=== PATIENT | male | born 1940 | race Caucasian/White ===

== ENCOUNTER → 2023-05-20 07:52 | Outpatient (REF) | payer OTHER, SELFPAY | LOC: RAD 07:52 | PROVIDERS: ATTENDING PHYSICIAN Surgery Vascular Surgery; FAMILY PHYSICIAN Internal Medicine; REFERRING PHYSICIAN Internal Medicine Cardiovascular Disease | DX: I71.43 Infrarenal abdominal aortic aneurysm, without rupture (principal); N18.9 Chronic kidney disease, unspecified; I71.40 Abdominal aortic aneurysm, without rupture, unspecified | CPT/HCPCS: 74176 ==

== ENCOUNTER → 2023-06-04 10:17 | Outpatient (REF) | payer OTHER, SELFPAY ==
[2023-06-04 12:06] LABS: Blood Urea Nitrogen 23 mg/dl (9-20); Carbon Dioxide 23 mmol/L (22-30); Chloride 103 mmol/L (98-107); Glucose 119 mg/dl (70-99); Potassium 4.9 mmol/L (3.5-5.1); Sodium 136 mmol/L (135-145); eGFR 54.85
== END ==
LOC: REG 10:17
PROVIDERS: ATTENDING PHYSICIAN Surgery Vascular Surgery; FAMILY PHYSICIAN Internal Medicine
DX: I71.43 Infrarenal abdominal aortic aneurysm, without rupture (principal)
CPT/HCPCS: 36415; 80048

== ENCOUNTER → 2023-06-15 09:16 | Outpatient (REF) | payer OTHER, SELFPAY | LOC: RAD 09:16 | PROVIDERS: ATTENDING PHYSICIAN Surgery Vascular Surgery; FAMILY PHYSICIAN Internal Medicine | DX: I71.43 Infrarenal abdominal aortic aneurysm, without rupture (principal) | CPT/HCPCS: 74174; Q9967 ==

== ENCOUNTER 2023-07-24 09:19 | Inpatient (IN) | payer OTHER, SELFPAY ==
[2023-07-16 09:22] VITALS: BMI 32.6
[2023-07-16 10:09] LABS: % Basophils 0.6 % (0-2); % Eosinophils 3.1 % (0-6); % Immature Granulocytes 0.4 % (0-0.5); % Lymphocytes 26.4 % (20.5-51.1); % Monocytes 6.6 % (1.7-9.3); % Neutrophils 62.9 % (42.2-75.2); Absolute Eosinophils 0.2 10^3/uL (0-0.7); Absolute Lymphocytes 1.4 10^3/uL (1.2-3.4); Absolute Monocytes 0.3 10^3/uL (0.1-0.6); Absolute Neutrophils 3.2 10^3/uL (1.4-6.5); Hematocrit 42.8 % (39.0-52.0); Mean Corp Hgb Conc. 32.7 g/dL (33.0-37.0); Mean Corpuscular Hgb 29.3 pg (27.0-31.0); Mean Corpuscular Volume 89.5 fL (80.0-94.0); Mean Platelet Volume 10.7 fL (7.4-10.4); Nucleated Red Blood Cells % 0 % (-); Platelet Count 168 10^3/uL (130-400); Red Blood Cell Count 4.78 10^6/uL (4.70-6.10); Red Cell Dist. Width 13.3 % (11.5-14.5); White Blood Cell Count 5.2 10^3/uL (4.8-10.8)
[2023-07-16 10:12] LABS: PT 18.2 Sec (11.4-14.6)
[2023-07-16 10:13] LABS: APTT 33.7 Sec (23.4-35.0)
[2023-07-16 10:15] LABS: Blood Urea Nitrogen 27 mg/dl (9-20); Calcium 9.8 mg/dl (8.4-10.2); Carbon Dioxide 26 mmol/L (22-30); Chloride 105 mmol/L (98-107); Estimated Creatinine Clearance 41 ml/min; Glucose 128 mg/dl (70-99); Sodium 134 mmol/L (135-145); eGFR 42.75
--- NOTE | 2023-07-16 12:35 | PTCARENOTE ---
INR 1.50 collected on 07/16/23; Cate at 's office was notified.
[2023-07-24] VITALS (17 sets, daily range): BP systolic 112–188; BP diastolic 56–99; BMI 32.5
--- NOTE | 2023-07-24 10:11 | W.SUR.PREOP ---
Pre-Operative Surgical Note
-
I have examined this patient prior to the performance of the scheduled procedure.
The patient's condition is unchanged from the time of the current History and
Physical and the patient is able to undergo the scheduled procedure.
[2023-07-24] MEDS: BACTROBAN NASAL 1 GRAM NASAL (11:45)
[2023-07-24] MEDS: PERIDEX 0.12% ORAL RINSE 15 ML PO (11:46)
[2023-07-24 13:52] LABS: ACT-LR - POC 316 Seconds (116-155)
[2023-07-24 14:38] LABS: ACT-LR - POC 281 Seconds (116-155)
--- NOTE | 2023-07-24 15:04 | W.IMMPOSTOP ---
Surgical Immed Post Op Note
-
Primary Surgeon: Dr. Jatin Jones III, MD
Assisting Surgeon: Dr. Kemar Velazco MD, PhD (PGY-1)
Pre-op Diagnosis: Infrarenal abdominal aortic aneurysm
Post-op Diagnosis: Infrarenal abdominal aortic aneurysm
Procedure Performed: EVAR of infrarenal AAA
Anesthesia Type: General
Specimen / Cultures: None
Estimated Blood Loss: 50cc
Complications: None
Operative Findings: Vascular access was obtained in common femoral arteries bilaterally. Preclose devices x2 were placed in each femoral access site. Following sheath placement, a [place] stent was deployed across the aneurysm. Contrast injected post
deployment demonstrated good flow in the R renal artery. The stent was balloon dilated. Post dilation contrast confirmed good patency and positioning of the stent. Sheaths were removed and vascular access sites were closed with the preclose devices.
Hemostasis confirmed and skin glue was placed at both sites.
--- NOTE | 2023-07-24 15:35 | OR.RPT ---
Operative Report
Operative Report
Date of Operation: 07/24/2023
Pre Op Diagnosis: Abdominal aortic aneurysm
Post Op Diagnosis: Abdominal aortic aneurysm
Procedure:
1.) Percutaneous endovascular repair of infrarenal abdominal aortic aneurysm:
GORE Excluder Conformable 23 mm x 14.5 mm x 12 cm (main body right)
GORE 14.5 mm x 12 cm (LEFT iliac limb)
GORE 18 mm x 12 cm (RIGHT iliac limb)
2.) Introduce wire/catheter abdominal aorta from femoral arterial access (bilateral)
3.) Ultrasound-guided percutaneous femoral access (bilateral)
4.) ProGlide femoral artery access closure bilaterally
Surgeon: Jatin Jones III, MD
Animal Care Attendant: Kemar Velazco MD PhD, PGY1
Anesthesia: General
Complications: None
History and Indications for Procedure: 83-year-old male with single kidney on the right and large abdominal aortic aneurysm.
Procedure in Detail: Dm Champagne was correctly identified and placed supine on the operating table. After adequate induction of anesthesia the abdomen, pelvis and bilateral groins were positioned, prepped and draped in the usual sterile fashion.
Preoperative antibiotics were administered. A timeout procedure was performed with the nursing and anesthesia staff confirming the patients identity as well as the nature and laterality of the procedure.
Under ultrasound guidance, bilateral femoral artery sheath access was obtained. The arteries were patent. Ultrasound images of the femoral arteries were saved to the medical record. A pre-close technique was performed bilaterally with 2 offset
Proglide closure devices. The sutures were secured and tucked under surgical towels for use at the end of the case. The patient was systemically heparinized.
From the right femoral access a KMP catheter and Bentson wire were advanced to the proximal descending thoracic aorta. The wire was exchanged out through the catheter for a Lunderquist wire. From the left femoral access a KMP A catheter and Bentson
wire were advanced to the proximal descending thoracic aorta. The wire was exchanged out through the KMP catheter for a Lunderquist wire. Over the stiff wire on the right a 16 Fr Dry Seal sheath was placed. Over the stiff wire on the left a 12 Fr
Dry Seal sheath was placed. Both sheath tips were advanced into the aneurysm sac. A marker pigtail catheter was then placed for angiographic purposes through the left femoral sheath.
The aortic main body device was then properly oriented outside the body under fluoro. The [place] Excluder Conformable 23 mm x 14.5 mm x 12 cm aortic main body device was then loaded onto the right femoral Lunderquist wire and advanced into the
abdominal aorta. Appropriate cranio-caudal C-arm positioning was performed based on preop imaging. With the device in the approximate position an aortogram was performed and identified the origins of the right renal artery (prior left nephrectomy).
The delivery system was then positioned such that the radiopaque markers were just distal to the lowest renal artery. The ipsilateral sheath was pulled back to below the distal limb marker. The pigtail catheter was pulled back into the aneurysm. The
first stage of main body deployment to the contralateral gate was then performed.
The C-arm was re-oriented to view the contralateral gate. Using the partially formed pigtail catheter within the 12 [place] sheath tip and a glide wire the contralateral gate was cannulated. The wire and catheter were advanced into the main body. The
pigtail was spun to confirm proper positioning in the main body lumen. Another aortogram was performed at this point to confirm proper positioning of the main body below the renal arteries. The aortic main body had landed upon initial deployment
slightly lower than I had desired below the right renal. Therefore I engaged the re-constraining mechanism of the [place] Excluder main body. Under roadmap guidance and magnification view I then carefully advanced the constrained aortic main body and
positioned it precisely below the right renal artery. The device was redeployed in the desired location.
The pigtail catheter was then advanced into the proximal descending thoracic aorta and then the wire exchanged out for a Lunderquist. The left femoral sheath was pulled back and a retrograde arteriogram was then performed with the marker pigtail
catheter on the stiff wire. The iliac bifurcation was visualized and lengths were measured for the contralateral iliac limb. A 14.5 mm x 12 cm iliac limb was inserted on the left under fluoro. Proper overlap was obtained. The limb was deployed under
roadmap guidance without difficulty.
The remainder of the main body and ipsilateral limb deployment was performed. The delivery system was carefully removed over the wire under fluoro. A marker pigtail catheter was placed on the stiff wire on the right. The 16 [place] sheath was pulled
back and a retrograde arteriogram was then performed with the marker pigtail catheter on the stiff wire. The right iliac bifurcation was visualized and lengths were measured for the ipsilateral iliac limb extension. A 18 mm x 12 cm iliac limb was
inserted on the right under fluoro. Proper overlap was obtained. The limb was deployed under roadmap guidance without difficulty.
An MOB balloon was then inserted from each femoral access, one side at a time. The proximal main body seal zone, all areas of overlap, both iliac limbs and both distal iliac seal zones were profiled with the balloon. The balloon was re-advanced into
the main body and the Lunderquist wire removed. A pigtail catheter was inserted and advanced to the proximal main body.
A completion aortogram demonstrated an excellent technical result. The aneurysm was excluded. No endoleaks were seen. The main right renal artery was patent.
The Proglide sutures were secured bilaterally after removing the sheaths and wires. Protamine was administered. Additional pressure was applied to the puncture sites bilaterally for 5 minutes. Hemostasis was achieved bilaterally.
Skin glue was applied bilaterally.
The patient tolerated the procedure well and was taken to the PACU in stable condition.
Attestation: I was present and responsible for the entire procedure
Jatin Jones III, MD
[facility] Vascular Surgery
[phone] (ecru)
[2023-07-24 15:45] LABS: Hematocrit 40.2 % (39.0-52.0); Hemoglobin 13.2 g/dL (13.0-18.0); Mean Corp Hgb Conc. 32.8 g/dL (33.0-37.0); Mean Corpuscular Hgb 29.5 pg (27.0-31.0); Mean Corpuscular Volume 89.9 fL (80.0-94.0); Mean Platelet Volume 10.4 fL (7.4-10.4); Platelet Count 155 10^3/uL (130-400); Red Blood Cell Count 4.47 10^6/uL (4.70-6.10); Red Cell Dist. Width 13.4 % (11.5-14.5); White Blood Cell Count 6.7 10^3/uL (4.8-10.8)
[2023-07-24] MEDS: NSS 1000 IV ×2 (15:52→23:47)
[2023-07-24 15:56] LABS: Blood Urea Nitrogen 21 mg/dl (9-20); Calcium 8.7 mg/dl (8.4-10.2); Carbon Dioxide 24 mmol/L (22-30); Chloride 106 mmol/L (98-107); Estimated Creatinine Clearance 55 ml/min; Glucose 120 mg/dl (70-99); Potassium 4.7 mmol/L (3.5-5.1); Sodium 133 mmol/L (135-145); eGFR > 60.00
[2023-07-24 16:04] LABS: APTT 32.7 Sec (23.4-35.0); INR 1.17; PT 14.7 Sec (11.4-14.6)
--- NOTE | 2023-07-24 16:33 | TRANSFER ---
Patient transferred to ICU following stable phase 1 recovery in PACU, Report given to Maria Victoria, Family given update. Sherman Paz RN BSN.
[2023-07-24] MEDS: CARDENE 200 IV (16:36)
--- NOTE | 2023-07-24 17:07 | CON.INTV ---
Consultation
Consultation Request
Date/Time Consultation Requested: 07/24/2023 - 1627
Date/Time Consultation Performed: 07/24/2023 - 1704
Requesting Provider: Dr. Jones
Performing Provider: Dr. Allen
Reason for Consultation: EVAR
Medical History
-
Chief Complaint: Elective EVAR
History of Present Illness:
83-year-old male with a past medical history of AAA, tricuspid regurgitation, hypertension, A-fib on Xarelto, CKD III, and penile cancer who presents with elective EVAR of known AAA without rupture. Patient known to vascular surgery with last
office visit on 06/18/[address] Jones. Patient has a known infrarenal abdominal aortic aneurysm without rupture. It measures 5.[address] angiogram images were reviewed at his last office visit and he was recommended for surgical
endovascular aortic aneurysm repair. 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 This was planned to be sacrificed in the process of endovascular repair.
Patient agreed and consented for surgical intervention, and today he underwent percutaneous endovascular repair of infrarenal abdominal aortic aneurysm. There were no complications, and patient was transferred to the ICU postoperatively for further
care. Critical care services now consulted for additional management/recommendations.
When I saw the patient he was laying in bed in no acute distress, on Cardene at 2.5mg/hr, with BP via left radial A-line of 114/60 (BP via NIBP: 116/56), HR: 76, and SpO2 95% on 4 L/min nasal cannula (not on home O2). Patient has no complaints �
denies chest pain, headache, abdominal pain, nausea, diarrhea, fevers or chills.
PMHx: Ureter cancer, penile cancer, A-fib, CKD 3, hypertension, history of TR, AAA
PSHx: Left-sided nephrectomy, pacemaker insertion
Past Medical History
Past Medical History: Other (Above as per HPI)
Past Surgical History: Other (Above as per HPI)
Social History
Tobacco: Former Smoker (Quit smoking 5 years ago - prior to that smoked 0.5 PPD X 50 years)
Alcohol: None
Drug: None
Family History
Family History: CAD (Father: History of heart attack) and Other (Father: Cerebral aneurysm; Mother: Dementia)
Allergies / Home Medications
Allergies
Allergy/AdvReac Type Severity Reaction Status Date / Time
sulfamethoxazole Allergy Severe Rash Verified 07/24/23 10:05
[From Bactrim]
trimethoprim [From Bactrim] Allergy Rash Verified 07/24/23 10:05
Home Medications
�Medication �Instructions �Recorded �Confirmed �Last Taken �Type
levocetirizine 5 mg tablet (Xyzal) 5 mg PO QPM 12/08/22 07/24/23 07/23/23 16:00 History
lisinopril 10 mg tablet 10 mg PO DAILY 12/08/22 07/24/23 07/23/23 07:00 History
pravastatin 40 mg tablet 40 mg PO QPM 12/08/22 07/24/23 07/23/23 07:00 History
rivaroxaban 15 mg tablet (Xarelto) 15 mg PO QPM 12/08/22 07/24/23 07/21/23 16:00 History
tamsulosin 0.4 mg capsule 0.4 mg PO BID 12/08/22 07/24/23 07/23/23 16:00 History
verapamil 80 mg tablet 80 mg PO BID 12/08/22 07/24/23 07/23/23 16:00 History
aspirin 81 mg chewable tablet 81 mg PO DAILY #90 tabs 07/24/23 Unknown Rx
(Children's Aspirin)
Review of Systems
-
History Source: Patient
All other systems: Negative unless noted (12 point ROS performed and is negative unless mentioned above.)
Vitals / Labs / Diagnostic Testing
Vital Signs
Temp Pulse Resp BP Pulse Ox
97.2 F 72 16 160/87 99
07/24/23 16:45 07/24/23 16:31 07/24/23 16:31 07/24/23 16:31 07/24/23 16:45
Lab Data
07/24/23 15:30
07/24/23 15:29
Laboratory Results
07/24/23
15:29
PT 14.7 H
INR 1.17
APTT 32.7
Diagnostic Testing:
Physical Exam
-
HEENT: Normocephalic and Anicteric
Cardiovascular: S1/S2 and Peripheral Edema (negative)
Respiratory: Clear, Wheeze (negative), Rales (negative), Rhonchi (negative) and Non-Labored Respirations
GI: Soft, Non Tender, Normal Bowel Sounds and Other (Abdominal obesity)
Neurology: AO x 3
Skin: Warm and Dry
General: Comfortable, Chills (negative) and Sweats (negative)
Assessment
-
Assessment: 83-year-old male with a past medical history of AAA, tricuspid regurgitation, hypertension, A-fib on Xarelto, CKD III, and penile cancer who presents with elective EVAR of known AAA without rupture. Patient known to vascular surgery
with last office visit on 06/18/[address] Jones. Patient has a known infrarenal abdominal aortic aneurysm without rupture. It measures 5.[address] angiogram images were reviewed at his last office visit and he was recommended for surgical
endovascular aortic aneurysm repair. 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 This was planned to be sacrificed in the process of endovascular repair.
Patient agreed and consented for surgical intervention, and today he underwent percutaneous endovascular repair of infrarenal abdominal aortic aneurysm. There were no complications, and patient was transferred to the ICU postoperatively for further
care. Critical care services now consulted for additional management/recommendations.
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
Impression:
#Abdominal aortic aneurysm s/p percutaneous endovascular aneurysm repair (POD#0)
#Hyponatremia
#Hx of CKDIII
#A-fib on Xarelto
#Obesity
#Former tobacco use disorder with 25-zevw-ypda history, quit in 2019
Plan:
Postoperative surgical intensive care unit monitoring
Supplemental oxygen as needed
Incentive spirometry
Aspiration precautions
Maintain SpO2 >90-94%
Maintain MAP>65
Wean down on cardene gtt as tolerated
Neuro and vascular checks per protocol
Replete electrolytes with K>4, Mg>2
Goal BG 140-180
Vascular surgery following-correspondence and operative notes reviewed
DVT prophylaxis: Xarelto
Early nutrition
Early mobilization
Given his tobacco smoking history, he qualifies for lung cancer screening via annual LDCT chest. He does have a known 2 mm nodule in the RLL. We can discuss this in the office.
Critical care statement: A total of 44 minutes of critical care time was provided for this patient today. This includes management of unstable vital signs, evaluation of the patient at bedside, reviewing the patient's pertinent medical records
including radiographs, microbiology, laboratory evaluations, and discussion with primary team, consultants, pharmacy, nutrition, physical therapy, case management, charge nurse, critical care nursing, and respiratory therapy.
Data:
CXR 07-24-2023: No acute disease of the chest
[2023-07-24] MEDS: LOW STRENGTH ASPIRIN 81 MG PO (17:13)
[2023-07-24] MEDS: ZYRTEC 10 MG PO (17:13)
[2023-07-24] MEDS: PRAVACHOL 40 MG PO (17:13)
[2023-07-24] MEDS: HEPARIN 5000 UNITS SC (17:13)
[2023-07-24 17:28] LABS: Magnesium 2.1 mg/dl (1.6-2.3)
--- NOTE | 2023-07-24 17:49 | PTCARENOTE ---
patient received from PACU, assessments per work list. patient denies pain, oriented, drowsy. asking questions about discharge medications and diet. instructed on plan of care. left radial arterial line with cuff correlation. afib with paced beats.
cardene initiated to keep MAP within ordered parameters. lungs clear. bilateral groin sites intact without signs bleeding or hematoma. palpable distal pulses. fox draining yellow urine. cxr, ekg completed. patient instructed on head of bed
limitations. flat for 2 hours. family at bedside. tolerating clear liquids. call oleary in reach
--- NOTE | 2023-07-24 20:00 | PTCARENOTE ---
patient received in bed drowsy but arousable. Oriented x3, [place] bilaterally. Offers no complaints. Afib with PVCs and occasional Vpacing,. Cardene gtt infusing at 2.5 mg/hr. No edema noted. palpable distal pulses. Lungs diminished bilaterally,
pulse ox 97% on 4L. Abdomen obese with hypoactive bowel sounds. Thermister fox draining yellow urine. Bilaterall groin sites approximated and open to air. #20 g in left hand with IVF infusing as ordered. #18 g in right hand flushed and patent.
Left radial Mitali transduced and zeroed. Plan of care discussed, call oleary within reach
[2023-07-24] MEDS: ISOPTIN 80 MG PO (20:33)
[2023-07-24] MEDS: FLOMAX 0.400000000000000022 MG PO (20:33)
[2023-07-25] MEDS: HEPARIN 5000 UNITS SC ×2 (00:13→07:48)
--- NOTE | 2023-07-25 00:49 | PTCARENOTE ---
Patient reassessed. no changes in neuro assessment, cardene gtt off, will monitor, oxygen decreased to 2L. Distal pulses remain palpable
[2023-07-25 04:35] LABS: Hematocrit 36.9 % (39.0-52.0); Hemoglobin 12.8 g/dL (13.0-18.0); Mean Corp Hgb Conc. 34.7 g/dL (33.0-37.0); Mean Corpuscular Hgb 30.2 pg (27.0-31.0); Mean Platelet Volume 10.3 fL (7.4-10.4); Platelet Count 152 10^3/uL (130-400); Red Blood Cell Count 4.24 10^6/uL (4.70-6.10); Red Cell Dist. Width 13.5 % (11.5-14.5); White Blood Cell Count 8.1 10^3/uL (4.8-10.8)
[2023-07-25 04:51] LABS: APTT 28.3 Sec (23.4-35.0); INR 1.12; PT 14.2 Sec (11.4-14.6)
--- NOTE | 2023-07-25 05:00 | PTCARENOTE ---
Cardene gtt restarted for MAP >90
[2023-07-25 05:29] LABS: Blood Urea Nitrogen 22 mg/dl (9-20); Calcium 8.7 mg/dl (8.4-10.2); Carbon Dioxide 20 mmol/L (22-30); Chloride 108 mmol/L (98-107); Estimated Creatinine Clearance 55 ml/min; Glucose 157 mg/dl (70-99); Sodium 133 mmol/L (135-145); eGFR > 60.00
[2023-07-25 05:31] VITALS: BP 135/81
[2023-07-25 06:00] VITALS: BP 139/75; BMI 33.0
--- NOTE | 2023-07-25 06:36 | W.PN.VS ---
Addendum entered and electronically signed by Jatin Jones III, MD 07/25/23 07:59:
This patient was seen and examined with ABILIO Taylor. I agree with the history and physical exam as well as the assessment and plan. I have the following additions:
Looks great this morning
No complaints
Abdomen soft
Palpable pedal pulses
Urine output has been good
Creatinine at baseline
Planning for discharge later today
Signed:
Jatin Jones III, MD
[facility] Vascular Surgery
[phone] (cell)
Original Note:
Today's Communication / Plan
-
Patient seen and examined at bedside with Dr. Jatin Jones III, below plan reviewed with attending.
Assessment/Plan
-
Assessment: 83-year-old male POD #1 EVAR for treatment of AAA
Plan:
Wean off Cardene infusion as tolerated, discontinue arterial line once Cardene is stopped
OOB to chair with progression to ambulation as tolerated
Continue antiplatelet aspirin 81 mg p.o. daily
Discontinue IV fluid
Discontinue Jones catheter
Continue p.o. intake as tolerated
Possible discharge later today pending toleration of ambulation, post Jones removal urinary void, hypertension management without Cardene infusion, continued toleration of p.o. diet
Subjective Data
-
Date of Service: July 25, 2023
Patient seen at bedside, offers no complaints. Denies nausea, vomiting, chills, fever, ABD pain, and bilateral groin pain.
Objective Data
-
Vital Signs
Temp Pulse Resp BP Pulse Ox
97.0 F 79 22 139/75 94
07/25/23 04:00 07/25/23 06:15 07/25/23 06:15 07/25/23 06:00 07/25/23 06:15
Intake and Output
07/23/23 07/24/23 07/25/23
06:59 06:59 06:59
Intake Total 2579.0 / 2579.0
Output Total 1110 / 1110
Balance 1469.0 / 1469.0
Intake:
Oral fluids 595 / 595
IV fluids (Total) 1984.0 / 1984.0
Nss 1,000 ml @ 75 mls/hr IV . 1813
[id number] [facility] Rx#:[id number]
cardene 120.0 / 120.0
norm 50 / 50
Output:
Urine, Jones [id number]
Lab Results
07/25/23 04:27
07/25/23 04:27
Calcium 8.7 mg/dl (8.4-10.2) 07/25/23 04:27
Magnesium 2.1 mg/dl (1.6-2.3) 07/24/23 15:29
Physical Exam
-
AAOx3, no apparent distress
No tachycardia
No dyspnea on room air
ABD soft, nontender, nondistended
Bilateral groin puncture sites CDI, no evidence of hematoma, all surrounding compartments soft
Jones draining clear yellow urine
Bilateral DP pulse +2 palpable
--- NOTE | 2023-07-25 07:44 | W.DS.TRANS ---
DC Summary - Docket Specialist
-
Discharge Instructions:
Sleep Apnea Risk High
Discharge Diagnosis/Procedures EVAR
Diet No restrictions
Activity No strenuous activity
Driving Restrictions No driving for 1 week
Bathing Restrictions OK to Shower
Others Tests BMP lab draw in 1 week - arrive to Lobby, check
in at desk, no appt needed script provided
Instructions:
Stand-Alone Forms: DC Instr - Vascular OR
Changes to Home Medications: Yes
Discharge Medications:
DC Medications w/original date entered in [facility]
levocetirizine 5 mg tablet (Xyzal) 5 mg PO QPM 12/08/22
lisinopril 10 mg tablet 10 mg PO DAILY 12/08/22
pravastatin 40 mg tablet 40 mg PO QPM 12/08/22
rivaroxaban 15 mg tablet (Xarelto) 15 mg PO QPM 12/08/22
tamsulosin 0.4 mg capsule 0.4 mg PO BID 12/08/22
verapamil 80 mg tablet 80 mg PO BID 12/08/22
aspirin 81 mg chewable tablet (Children's Aspirin) 81 mg PO DAILY #90 tabs 07/24/23
Home Medication Changes
Added: aspirin 81 mg chewable tablet (Children's Aspirin) 81 mg PO DAILY #90 tabs 07/24/23
Pending Results: No
[2023-07-25] MEDS: ZESTRIL 10 MG PO (07:47)
[2023-07-25] MEDS: FLOMAX 0.400000000000000022 MG PO (07:47)
[2023-07-25] MEDS: ISOPTIN 80 MG PO (07:47)
[2023-07-25] MEDS: NSS IV (07:48)
[2023-07-25] MEDS: LOW STRENGTH ASPIRIN 81 MG PO (07:48)
--- NOTE | 2023-07-25 08:00 | W.PN.INTV ---
Today's Communication / Plan
Recommendations
Up OOB as tolerated
Resume home PO medications including antihypertensives
Outpatient follow-up for his significant tobacco smoking history and RLL pulmonary nodule
Patient being prepared for discharge home per vascular surgery. Electrical Supervisor/Pulmonary service will now sign off. Please reconsult if there are any additional questions/concerns, or if patient's respiratory status deteriorates.
Assessment
-
Assessment: 83-year-old male with a past medical history of AAA, tricuspid regurgitation, hypertension, A-fib on Xarelto, CKD III, and penile cancer who presents with elective EVAR of known AAA without rupture. Patient known to vascular surgery
with last office visit on 06/18/[address] Jones. Patient has a known infrarenal abdominal aortic aneurysm without rupture. It measures 5.[address] angiogram images were reviewed at his last office visit and he was recommended for surgical
endovascular aortic aneurysm repair. 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 This was planned to be sacrificed in the process of endovascular repair.
Patient agreed and consented for surgical intervention, and today he underwent percutaneous endovascular repair of infrarenal abdominal aortic aneurysm. There were no complications, and patient was transferred to the ICU postoperatively for further
care. Critical care services now consulted for additional management/recommendations.
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
Impression:
#Abdominal aortic aneurysm s/p percutaneous endovascular aneurysm repair (POD#1)
#Hyponatremia - stable
#Hx of CKDIII
#A-fib on Xarelto
#Obesity
#Former tobacco use disorder with [id number] history, quit in 2019
Plan:
Postoperative surgical intensive care unit monitoring
Supplemental oxygen as needed to maintain SpO2 >90-94%
Incentive spirometry
Aspiration precautions
Maintain MAP>65
He has been successfully weaned off of Cardene gtt --> resume PO anti-hypertensives
Neuro and vascular checks per protocol
Replete electrolytes with K>4, Mg>2
Goal BG 140-180
Vascular surgery following-correspondence and operative notes reviewed
DVT prophylaxis: would resume Xarelto
Early nutrition
Early mobilization
Given his tobacco smoking history, he qualifies for lung cancer screening via annual LDCT chest. He does have a known 2 mm nodule in the RLL. We can discuss this in the office which I will arrange.
Patient being prepared for discharge home per vascular surgery. Electrical Supervisor/Pulmonary service will now sign off. Thank you for allowing us to be involved in the care of this patient. Please reconsult if there are any additional
questions/concerns, or if patient's respiratory status deteriorates.
Total time spent today was 55 minutes for this encounter. Time includes reviewing laboratory test/imaging results, reviewing pertinent medical records, obtaining and reviewing medical history, performing an appropriate exam, ordering medications,
tests and procedures. Time also includes documentation of this encounter, coordinating patient care and communicating with other healthcare professionals. Total time does not include separately billed tests performed on this date of service.
Data:
CXR 07-24-2023: No acute disease of the chest
Subjective Dataa
Subjective Data
Date of Service:
Date of Service: July 25, 2023
Chief Complaint: Electrical Supervisor Follow Up
Subjective:
Patient seen this morning. Sitting in chair doing well. Weaned off Cardene drip overnight. Current BP 146/78. On room air breathing comfortably.
Review of Systems
General: Other (Negative unless mentioned above)
Objective Data
Data Reviewed
Vital Signs / I&O / Oxygen:
Vital Signs
Temp Pulse Resp BP Pulse Ox
97.0 F 76 16 146/78 95
07/25/23 04:00 07/25/23 09:30 07/25/23 09:30 07/25/23 08:06 07/25/23 08:06
Intake and Output
07/24/23 07/25/23 07/26/23
06:59 06:59 06:59
Intake Total 2579.0 / 2579.0
Output Total 1110 / 1110
Balance 1469.0 / 1469.0
SaO2 95
Nasal Cannula flow liters per 4
minute
Physical Exam
General: Respiratory Distress (negative) and Comfortable
HEENT: Normocephalic and Anicteric
Cardiovascular: Irregular Rhythm and Peripheral Edema (Trace lower extremity edema bilaterally)
Respiratory: Wheeze (negative), Crackles (Bibasilar), Rhonchi (negative) and Non-Labored Respirations
GI: Soft, Non Tender, Normal Bowel Sounds and Other (Abdominal obesity)
Neurology: AO x 3 and Tremors (negative)
Skin: Warm and Dry
Labs/Micro/Reports
Lab Data
07/25/23 04:27
07/25/23 04:27
Laboratory Results
07/24/23 07/25/23
15:29 04:27
PT 14.7 H 14.2
INR 1.17 1.12
APTT 32.7 28.3
[2023-07-25 08:06] VITALS: BP 146/78
[2023-07-25 11:00] VITALS: BP 148/76
--- NOTE | 2023-07-25 12:01 | PTCARENOTE ---
Rec'd pt at 0700. Pt AAOx3, follows commands, SON. Monitor Afib 70-90's with occas V-paced beats. Am meds given and Cardene gtts turned off. Lungs CTA, pox 97% RA. +BS, abd large/round/nt. Left radial a-line dc'd, fox dc'd as per orders. Pt OOB to
recliner chair this am, ambulating in room/german. Voiding without difficulty in bathroom. BLE pink/warm, palpable pulses.
--- NOTE | 2023-07-25 14:20 | CM ---
senior insight manager international reviewed patient's chart and met with patient and patient was independent with adl's and ambulation, no dme, patient drives, patient has a prescription plan and uses [facility] pharmacy.
Plan; Home today no needs.
[2023-07-25 14:28] VITALS: BP 156/78
--- NOTE | 2023-07-25 15:58 | PTCARENOTE ---
~1420 discharge instructions reviewed with pt, stent card from chart given to pt. IVs and monitor removed. Pt discharged to home ~1545 once ride arrived.
--- NOTE | 2023-07-28 12:29 | W.DCSUMMARY ---
Discharge Summary
Discharge Data
Date of Admission: 07/24/23
Date of Discharge: 07/25/23
-
Pending Results: No
Hospital Course
Attending: Jatin Jones III, MD
Consultants: Pulmonary medicine
Allergies: Bactrim
Procedure with date: 1.) Percutaneous endovascular repair of infrarenal abdominal aortic aneurysm:
GORE Excluder Conformable 23 mm x 14.5 mm x 12 cm (main body right)
GORE 14.5 mm x 12 cm (LEFT iliac limb)
GORE 18 mm x 12 cm (RIGHT iliac limb)
2.) Introduce wire/catheter abdominal aorta from femoral arterial access (bilateral)
3.) Ultrasound-guided percutaneous femoral access (bilateral)
4.) ProGlide femoral artery access closure bilaterally : On 07/24/[address] Jatin Jones III
History of present illness: The patient is an 83-year-old male with multiple medical conditions including: AAA, CKD stage III, atrial fibrillation, and hypertension. Patient presented on 07/24/2023 for scheduled procedure with Dr. Jones. Patient
presented at baseline health with no reports of recent illness or trauma.
Hospital Course: Briefly, the patient underwent scheduled EVAR without complications, and recovered in PACU. Following recovery phase one and two patient was transferred to intensive care unit per protocol for continued hemodynamic monitoring.
Tooler consulted to aid in medical management from a critical care perspective. POD #1 (07/25/2023) Patient denies nausea, vomiting, chills, fever, ABD pain, and bilateral groin pain.
Bilateral groin puncture sites CDI, with Dermabond intact, and no evidence of hematoma. Patient requiring minimal dose of Cardene infusion for blood pressure control, weaned to off. Arterial line, IV fluids, and urinary Jones catheter
discontinued. Patient able to ambulate without difficulty or incident. Patient stable for discharge to home.
Prescriptions and follow up appointment are included in the DC summary roll cleaner note. All instructions were given to the patient in both written and verbal form and the patient expressed understanding.
Discharge Plan
-
Patient Disposition: Home (Routine Discharge)
Discharge Diagnosis/Procedures: EVAR
Condition: Good
Diet: No restrictions
Activity: No strenuous activity
Driving Restrictions: No driving for 1 week
Bathing Restrictions: OK to Shower
Others Tests: BMP lab draw in 1 week - arrive to Lobby, check in at desk, no appt needed script provided
Stand Alone Forms: DC Instr - Vascular OR
Referrals:
Seven Allen MD [Active] - in four to six weeks
(Pulmonary Follow up:
To discuss lung cancer screening
Also has known RLL lung nodule)
Martin Morris DO [Family Provider] -
Paige Mercado CRNP [Specified Professional Personl] - 08/04/23 10:45 am (Vascular follow up)
Prescriptions:
New
aspirin [Children's Aspirin] 81 mg Tablet,Chewable
81 mg PO DAILY Qty: 90 0RF
Continued
pravastatin 40 mg Tablet
40 mg PO QPM
tamsulosin 0.4 mg Capsule
0.4 mg PO BID
lisinopril 10 mg Tablet
10 mg PO DAILY
verapamil 80 mg Tablet
80 mg PO BID
levocetirizine [Xyzal] 5 mg Tablet
5 mg PO QPM
Xarelto 15 mg Tablet
15 mg PO QPM
Discharge Orders:
Discharge Patient (As Directed); Ordered 07/25/23
Ordered By: Jatin Jones III
Discharge Date and Time
Discharge Date/Time: 07/25/23 17:14
Print Language: FRENCH
== END 2023-07-25 17:14 | disposition home or self-care (01) | DRG 269 ==
LOC: ICU 09:19
PROVIDERS: Nurse Practitioner Acute Care; ADMITTING PHYSICIAN Surgery Vascular Surgery; CONSULT PHYSICIAN Internal Medicine Critical Care Medicine; FAMILY PHYSICIAN Internal Medicine
PROC: 04V03DZ Restriction of Abdominal Aorta with Intraluminal Device, Percutaneous Approach (ICD-10-PCS; 2023-07-24)
DX: I71.43 Infrarenal abdominal aortic aneurysm, without rupture (principal); E87.1 Hypo-osmolality and hyponatremia; I12.9 Hypertensive chronic kidney disease with stage 1 through stage 4 chronic kidney disease, or unspecified chronic kidney disease; I48.91 Unspecified atrial fibrillation; I07.1 Rheumatic tricuspid insufficiency; E66.9 Obesity, unspecified; N18.31 Chronic kidney disease, stage 3a; Q27.2 Other congenital malformations of renal artery; Z68.33 Body mass index [BMI] 33.0-33.9, adult; Z79.01 Long term (current) use of anticoagulants; Z79.82 Long term (current) use of aspirin; Z79.899 Other long term (current) drug therapy; Z82.49 Family history of ischemic heart disease and other diseases of the circulatory system; Z85.49 Personal history of malignant neoplasm of other male genital organs; Z87.891 Personal history of nicotine dependence; Z90.5 Acquired absence of kidney; Z95.0 Presence of cardiac pacemaker
CPT/HCPCS: 34705; 34713; 36415; 71045; 71046; 76937; 80048; 83735; 85025; 85027; 85610; 85730; 86850; 86900; 86901; 87070; 93005; C1725; C1760; C1769; C1894; Q9967

== ENCOUNTER → 2023-08-04 11:34 | Outpatient (REF) | payer OTHER, SELFPAY ==
[2023-08-04 13:31] LABS: Blood Urea Nitrogen 26 mg/dl (9-20); Calcium 10.2 mg/dl (8.4-10.2); Carbon Dioxide 27 mmol/L (22-30); Chloride 103 mmol/L (98-107); Glucose 103 mg/dl (70-99); Potassium 5.3 mmol/L (3.5-5.1); Sodium 136 mmol/L (135-145); eGFR 46.19
== END ==
LOC: REG 11:34
PROVIDERS: ATTENDING PHYSICIAN Registered Nurse
DX: I71.43 Infrarenal abdominal aortic aneurysm, without rupture (principal)
CPT/HCPCS: 36415; 80048

== ENCOUNTER → 2023-08-19 08:48 | Outpatient (REF) | payer OTHER, SELFPAY ==
[2023-08-19 10:59] LABS: Blood Urea Nitrogen 30 mg/dl (9-20); Calcium 10.1 mg/dl (8.4-10.2); Carbon Dioxide 22 mmol/L (22-30); Chloride 105 mmol/L (98-107); Glucose 141 mg/dl (70-99); Potassium 4.5 mmol/L (3.5-5.1); Sodium 138 mmol/L (135-145); eGFR 46.19
== END ==
LOC: REG 08:48
PROVIDERS: ATTENDING PHYSICIAN Surgery Vascular Surgery
DX: I71.40 Abdominal aortic aneurysm, without rupture, unspecified (principal)
CPT/HCPCS: 36415; 80048

== ENCOUNTER 2023-09-04 07:34 | Outpatient (RCR) | payer OTHER, SELFPAY ==
[2023-09-04 07:50] VITALS: BP 167/70
[2023-09-04] MEDS: SODIUM BICARBONATE 1150 MEQ IV (08:00)
== END 2023-09-27 23:59 | disposition home or self-care (01) ==
LOC: OID 07:34
PROVIDERS: ATTENDING PHYSICIAN Surgery Vascular Surgery; FAMILY PHYSICIAN Internal Medicine
DX: I71.40 Abdominal aortic aneurysm, without rupture, unspecified (principal); I71.43 Infrarenal abdominal aortic aneurysm, without rupture (principal); N18.9 Chronic kidney disease, unspecified; Z98.890 Other specified postprocedural states; Z90.5 Acquired absence of kidney
CPT/HCPCS: 74174; 96360; 96361; Q9967

== ENCOUNTER → 2023-09-04 08:06 | Outpatient (REF) | payer OTHER, SELFPAY | LOC: RAD 08:06 | PROVIDERS: ATTENDING PHYSICIAN Surgery Vascular Surgery | DX: I71.43 Infrarenal abdominal aortic aneurysm, without rupture (principal) | CPT/HCPCS: 74174; Q9967 ==

== ENCOUNTER → 2023-09-07 10:06 | Outpatient (REF) | payer OTHER, SELFPAY ==
[2023-09-07 11:53] LABS: Albumin 4.1 g/dl (3.5-5.0); Blood Urea Nitrogen 29 mg/dl (9-20); Calcium 10.1 mg/dl (8.4-10.2); Carbon Dioxide 24 mmol/L (22-30); Chloride 104 mmol/L (98-107); Glucose 120 mg/dl (70-99); Phosphorus 2.7 mg/dl (2.5-4.5); Potassium 4.5 mmol/L (3.5-5.1); Sodium 136 mmol/L (135-145); eGFR 50.18
== END ==
LOC: REG 10:06
PROVIDERS: ATTENDING PHYSICIAN Specialist; FAMILY PHYSICIAN Internal Medicine
DX: Z90.5 Acquired absence of kidney (principal)
CPT/HCPCS: 36415; 80069

== ENCOUNTER → 2023-09-14 08:33 | Outpatient (REF) | payer OTHER, SELFPAY | LOC: RAD 08:33 | PROVIDERS: ATTENDING PHYSICIAN Registered Nurse; FAMILY PHYSICIAN Internal Medicine | DX: I71.43 Infrarenal abdominal aortic aneurysm, without rupture (principal) | CPT/HCPCS: 76770 ==

== ENCOUNTER → 2023-12-24 10:35 | Outpatient (REF) | payer OTHER, SELFPAY ==
[2023-12-24 11:55] LABS: Blood Urea Nitrogen 28 mg/dl (9-20); Calcium 9.6 mg/dl (8.4-10.2); Carbon Dioxide 26 mmol/L (22-30); Chloride 104 mmol/L (98-107); Glucose 127 mg/dl (70-99); Potassium 4.6 mmol/L (3.5-5.1); Sodium 141 mmol/L (135-145); eGFR 46.19
== END ==
LOC: REG 10:35
PROVIDERS: ATTENDING PHYSICIAN Specialist; FAMILY PHYSICIAN Internal Medicine; OTHER PHYSICIAN Internal Medicine Cardiovascular Disease; REFERRING PHYSICIAN Surgery Vascular Surgery
DX: Z90.5 Acquired absence of kidney (principal)
CPT/HCPCS: 36415; 80048

== ENCOUNTER → 2024-03-31 08:53 | Outpatient (REF) | payer OTHER, SELFPAY | LOC: RAD 08:53 | PROVIDERS: ATTENDING PHYSICIAN Surgery Vascular Surgery; FAMILY PHYSICIAN Internal Medicine | DX: I71.43 Infrarenal abdominal aortic aneurysm, without rupture (principal) | CPT/HCPCS: 76770 ==

== ENCOUNTER → 2024-06-15 09:59 | Outpatient (REF) | payer OTHER, SELFPAY ==
[2024-06-15 12:04] LABS: Albumin 4.1 g/dl (3.5-5.0); Blood Urea Nitrogen 23 mg/dl (9-20); Calcium 9.7 mg/dl (8.4-10.2); Carbon Dioxide 26 mmol/L (22-30); Chloride 103 mmol/L (98-107); Glucose 118 mg/dl (70-99); Phosphorus 2.3 mg/dl (2.5-4.5); Potassium 4.6 mmol/L (3.5-5.1); Sodium 137 mmol/L (135-145); eGFR 54.51
[2024-06-15 12:38] LABS: Glycohemoglobin (HgbA1c) 5.9 % (4.0-5.6)
[2024-06-15 15:36] LABS: Microalbumin, Random Urine 12.7 mg/dl (0.6-1.7); Microalbumin/creatinine Ratio 99.3 mg/g
== END ==
LOC: REG 09:59
PROVIDERS: ATTENDING PHYSICIAN Specialist; FAMILY PHYSICIAN Internal Medicine; OTHER PHYSICIAN Internal Medicine Cardiovascular Disease; REFERRING PHYSICIAN Surgery Vascular Surgery
DX: Z90.5 Acquired absence of kidney (principal); R73.02 Impaired glucose tolerance (oral)
CPT/HCPCS: 36415; 80069; 82043; 82570; 83036

== ENCOUNTER → 2024-09-12 09:09 | Outpatient (REF) | payer OTHER, SELFPAY | LOC: RAD 09:09 | PROVIDERS: ATTENDING PHYSICIAN Registered Nurse; FAMILY PHYSICIAN Internal Medicine; REFERRING PHYSICIAN Surgery Vascular Surgery | DX: I71.43 Infrarenal abdominal aortic aneurysm, without rupture (principal) | CPT/HCPCS: 74176 ==

== ENCOUNTER → 2024-10-12 09:15 | Outpatient (REF) | payer OTHER, SELFPAY | LOC: DHVS 09:15 | PROVIDERS: ATTENDING PHYSICIAN Registered Nurse | DX: I71.43 Infrarenal abdominal aortic aneurysm, without rupture (principal) | CPT/HCPCS: 76770 ==